=== PATIENT | male | born 1945 | race Caucasian/White ===

== ENCOUNTER 2016-10-22 10:26 | Day surgery (SDC) | payer MEDICARE, OTHER ==
--- NOTE | 2016-10-22 07:39 | HP ---
DATE OF SURGERY: 10/22/2016 HISTORY OF PRESENT ILLNESS: The patient is a 70 year-old with no bloody stools, history of polyps, the last colonoscopy was five years or so ago and no change in bowel habits. Family history negative for colon cancer. He is in need of follow up screening colonoscopy. PAST MEDICAL HISTORY: Hypercholesterolemia, diabetes, reflux. PAST SURGICAL HISTORY: Hernia surgery in the past. Laser surgery on prostate in the past. MEDICATIONS: Lansoprazole, Metformin, Simvastatin, aspirin. ALLERGIES: NKDA. FAMILY HISTORY: Negative in regards to this problem. SOCIAL HISTORY: No alcohol abuse. REVIEW OF SYSTEMS: Twelve systems reviewed per admission assessment. No chest pain or palpitations other systems negative or noncontributory as above and per preadmission questionnaire. PHYSICAL EXAMINATION: GENERAL: No acute distress. HEENT: Sclerae nonicteric. NECK: No JVD. CHEST: Equal excursion, nonlabored breathing. CVS: Regular rate and rhythm. ABDOMEN: Soft, nontender. No peritoneal signs. EXTREMITIES: No edema. No cyansosis. NEURO: Alert, moving extremities symmetrically. No gross motor deficits noted. RECTAL: Deferred timed to endoscopy exam. IMPRESSION: History of polyps. The last colonoscopy five years or more ago, needs follow up screening colonoscopy. I feel he is a candidate. Risks and benefits explained in detail. He is shown the risk sheet and explained the procedure in detail but not limited to bleeding or infection, small risk of bowel injury or perforation possibly requiring open procedure, small risk of missed or nondiagnosis or incomplete exam possibly requiring barium enema, other studies or procedures, general risk of anesthesia or sedation, risk of bowel prep, risk of nausea, cramping postoperatively but not limited to. He understands and agrees to the planned procedure and will proceed with follow up screening colonoscopy as an outpatient.
[~2016-10-22 10:26] MED LIST: DEMEROL 50 MG IV ONE; MORPHINE SULFATE 10 MG/ML IV ONE; Sodium Chloride 0.9% 1000 ML 1,000 ML IV SCH; Sodium Chloride 0.9% 1000 ML 1,000 ML ONE; VERSED 5 MG/5 ML IV ONE; Zofran 4 MG/2 ML VIAL IV ONE
[2016-10-22 16:31] VITALS: BP 129/75; PULSE 80; O2SAT 97
--- NOTE | 2016-10-23 08:09 | OP ---
SURGERY DATE/TIME: 10/22/2016 1338 PREOPERATIVE DIAGNOSIS: History of polyp, need follow up screening colonoscopy. POSTOPERATIVE DIAGNOSES: 1) Somewhat poor right colon prep limiting exam. 2) Diverticulosis. 3) Small internal hemorrhoid. 4) Small polyps ascending colon x2. 5) Small polyp transverse colon. 6) Small raised lesion versus hyperplastic lesion in the cecum and retrosigmoid area. PROCEDURES: 1) Colonoscopy to the cecum with hot snare polypectomy of the ascending colon polyp. 2) Hot biopsy removal of second separate site ascending colon polyp. 3) Hot biopsy removal of transverse colon polyp in piecemeal fashion. 4) Hot biopsy raised cecal lesion and rectosigmoid lesion versus hyperplastic lesions. SURGEON: Dr. David Vences. ANESTHESIA: IV sedation IV Demerol and Versed. IV Zofran. IV morphine. ESTIMATED BLOOD LOSS: Minimal. INDICATIONS: As noted above. Risks and benefits explained in detail but not limited to and consent obtained. DESCRIPTION OF PROCEDURE AND FINDINGS: The patient is taken to the endoscopy room on continuous pulse oximetry and blood pressure monitoring. After official time out and no disagreement with planned procedure, incrementally sedated with IV Demerol and Versed initially and then IV morphine and Versed. He had been given IV Zofran. Digital rectal exam did not reveal any rectal masses. He did have some small internal hemorrhoids. Video colonoscope inserted and passed up through the somewhat tortuous sigmoid, descending, transverse and ascending colon. With external pressure it was able to be passed through the cecum, appendiceal orifice and valve well visualized. Prep overall was somewhat poor particularly on the right colon with liquidy semisolid stool, a little bit better in the left colon. On withdrawal of the scope there was a small vague raised area in the cecum whether it was a simple hyperplasia of the mucosa or not does merit the hot biopsy forceps with brief bursts of cautery. Good hemostasis noted. Otherwise scope pulled back. There was a small polyp that was able to be removed with a snare hot snare polypectomy with brief bursts of cautery about 3 to 4 mm in size. Another 2 mm small polyp was removed with hot biopsy forceps with brief bursts of cautery in the second site in the descending colon. The scope was then pulled back to the transverse colon. There was another polyp on a fold that was only about 3.5 mm in size but required removal in piecemeal fashion although slightly sessile. It was removed in toto with path pending. The scope was then carefully pulled back, had some diverticulosis. He had small raised lesion versus hyperplastic lesion in the rectosigmoid removed with hot biopsy forceps. Otherwise had some small internal hemorrhoids. There were no signs of any large polyps, masses or obstructing lesions. Again his prep did limit the exam somewhat. Will await the biopsy results to decide whether to have follow up colonoscopy in two or three years given the piecemeal removal of the polyp in the transverse colon. The patient tolerated the procedure well. Findings discussed with the family in the waiting area.
== END 2016-10-22 15:50 | disposition home or self-care (01) ==
LOC: SDC 10:26
PROVIDERS: ATTEND Surgery
PROC: 0DBK8ZX Excision of Ascending Colon, Via Natural or Artificial Opening Endoscopic, Diagnostic (ICD-10-PCS; principal; 2016-10-22)
PROC: 0DBK8ZX Excision of Ascending Colon, Via Natural or Artificial Opening Endoscopic, Diagnostic (ICD-10-PCS; 2016-10-22)
PROC: 0DBN8ZX Excision of Sigmoid Colon, Via Natural or Artificial Opening Endoscopic, Diagnostic (ICD-10-PCS; 2016-10-22)
PROC: 0DBP8ZX Excision of Rectum, Via Natural or Artificial Opening Endoscopic, Diagnostic (ICD-10-PCS; 2016-10-22)
PROC: 0DBL8ZX Excision of Transverse Colon, Via Natural or Artificial Opening Endoscopic, Diagnostic (ICD-10-PCS; 2016-10-22)
DX: K57.90 Diverticulosis of intestine, part unspecified, without perforation or abscess without bleeding (principal); Z12.11 Encounter for screening for malignant neoplasm of colon; Z86.010 Personal history of colon polyps; K64.8 Other hemorrhoids; D12.2 Benign neoplasm of ascending colon; D12.3 Benign neoplasm of transverse colon; K63.9 Disease of intestine, unspecified; K62.9 Disease of anus and rectum, unspecified; E11.9 Type 2 diabetes mellitus without complications; Z79.4 Long term (current) use of insulin; K21.9 Gastro-esophageal reflux disease without esophagitis; E78.00 Pure hypercholesterolemia, unspecified; Z79.899 Other long term (current) drug therapy
CPT/HCPCS: 36415; J2175; J2250; J2270; J2405

== ENCOUNTER 2019-12-21 08:52 | Day surgery (SDC) | payer MEDICARE ==
--- NOTE | 2019-12-21 08:26 | HP ---
DATE OF SURGERY: 12/21/2019 HISTORY OF PRESENT ILLNESS: The patient is a 74 year old with history of polyps, no bloody stools, no change in bowel movements and no pain. Family history negative for colon cancer. He has history of polyps and is in need of follow up screening colonoscopy. PAST MEDICAL HISTORY: Heart disease, defibrillator in the past. Hypertension, hyperlipidemia, reflux. PAST SURGICAL HISTORY: Open heart surgery in the past. Vasectomy in the past. Defibrillator in the past. Prostate surgery in the past. MEDICATIONS: Multivitamins, amlodipine, aspirin, atorvastatin, furosemide, Klor-Con, omeprazole, Carvedilol, Entresto, ferrous sulfate, metformin. ALLERGIES: NKDA. FAMILY HISTORY: Diabetes, heart disease. SOCIAL HISTORY: No smoking or alcohol abuse. REVIEW OF SYSTEMS: Fourteen systems reviewed. No chest pain or palpitations. Other systems negative or noncontributory as above and per preadmission questionnaire. PHYSICAL EXAMINATION: GENERAL: No acute distress. HEENT: Sclerae nonicteric. NECK: No JVD. CHEST: Equal excursion, nonlabored breathing. CVS: Regular rate and rhythm. ABDOMEN: Soft. No peritoneal signs. EXTREMITIES: No significant edema. NEURO: Alert, oriented, moving extremities symmetrically. No gross motor deficits noted. RECTAL: Deferred timed to endoscopy exam. PSYCH: Appropriate mood and affect. IMPRESSION: History of multiple tubular adenoma in the colon in the past. I feel he would benefit from follow up colonoscopy. His last endoscopy was a few years ago and I feel he is a candidate. He was shown the risk sheet and explained the procedure in detail including but not limited to bleeding or infection, risk of bowel injury or perforation possibly requiring open procedure, risk of missed or nondiagnosis or incomplete exam possibly requiring barium enema, other studies or procedures, general risk of anesthesia or sedation but not limited to and consent obtained, will proceed with outpatient colonoscopy.
[~2019-12-21 08:52] MED LIST changes: -DEMEROL 50 MG IV ONE; +DIPRIVAN 200 MG/20 ML IV ONE; +Lactated Ringers 1,000 ML IV SCH; -MORPHINE SULFATE 10 MG/ML IV ONE; -Sodium Chloride 0.9% 1000 ML 1,000 ML IV SCH; -Sodium Chloride 0.9% 1000 ML 1,000 ML ONE; -VERSED 5 MG/5 ML IV ONE; -Zofran 4 MG/2 ML VIAL IV ONE
[2019-12-21 12:04] VITALS: PULSE 68
[2019-12-21 12:24] VITALS: BP 123/65; O2SAT 99
[2019-12-21] MEDS ORDERED: Lactated Ringers 1,000 ML IV ONE (12:39)
--- NOTE | 2019-12-21 13:01 | OP ---
SURGERY DATE/TIME: 12/21/2019 1059 PREOPERATIVE DIAGNOSIS: History of polyps. POSTOPERATIVE DIAGNOSES: Small polyps ascending colon, transverse colon. PROCEDURES: 1) Colonoscopy to cecum. 2) Hot biopsy piecemeal removal of ascending colon polyp. 3) Hot biopsy removal with piecemeal of transverse colon polyp. 4) ASA Class II. SURGEON: Dr. David Vences. ANESTHESIA: MAC. ESTIMATED BLOOD LOSS: Minimal. INDICATIONS: As noted above. Risks and benefits explained in detail but not limited to and consent obtained. DESCRIPTION OF PROCEDURE AND FINDINGS: The patient is taken to the operating room. After official time out and no disagreement with planned procedure, MAC anesthesia introduced. Digital rectal exam did not reveal any rectal masses. He did have some small internal hemorrhoids. Video colonoscope inserted and passed up through the slightly tortuous sigmoid, descending, transverse and ascending colon. With external pressure the scope was able to be passed to the cecum. Appendiceal orifice and valve well visualized and photo documented. Prep was fair. ASA Class II. Withdrawal time was approximately ten minutes. Scope slowly and carefully withdrawn. There were no signs of any large polyps, masses or obstructing lesions. He did have a small, 3 mm polyp in the ascending colon removed with two pieces with hot biopsy forceps and brief bursts of cautery. Good hemostasis. It was removed in piecemeal fashion and appeared to be completely removed. Scope carefully withdrawn. He had one other small polyp in the transverse colon removed with hot biopsy forceps with brief bursts of cautery in piecemeal fashion. Good hemostasis noted. Otherwise he had a few small diverticula in the left colon, some minimal internal hemorrhoids. There were no signs of any large polyps, masses or obstructing lesions. He tolerated the procedure well. There were no immediate complications. There was no family here to discuss the findings with. I will see him back in the office next week. If the path has benign adenoma likely will recommend follow up colonoscopy.
== END 2019-12-21 12:20 | disposition home or self-care (01) ==
LOC: SDC 08:52
PROVIDERS: ATTEND Surgery
DX: Z12.11 Encounter for screening for malignant neoplasm of colon (principal); Z86.010 Personal history of colon polyps; K64.8 Other hemorrhoids; D12.2 Benign neoplasm of ascending colon; D12.3 Benign neoplasm of transverse colon; K57.30 Diverticulosis of large intestine without perforation or abscess without bleeding; E11.9 Type 2 diabetes mellitus without complications; I10 Essential (primary) hypertension; E78.5 Hyperlipidemia, unspecified; Z79.899 Other long term (current) drug therapy
CPT/HCPCS: 82962; 88305; 99100; J2704

== ENCOUNTER 2023-03-04 09:29 | Day surgery (SDC) | payer MEDICARE ==
--- NOTE | 2023-03-04 08:16 | HP ---
DATE OF SURGERY: 03/04/2023 HISTORY OF PRESENT ILLNESS: The patient is a 77-year-old was sent a reminder for a follow up colonoscopy. I do believe he said he had some polyps in the past. He denies any bloody stools, no change in bowel movement and no new pain. Family history negative for colon cancer. PAST MEDICAL HISTORY: Hypertension, heart disease, arthritis, heartburn, diabetes mellitus type II, prostate cancer and hyperlipidemia. PAST SURGICAL HISTORY: Pacemaker/defibrillator in the past. Coronary artery bypass graft. Colonoscopy. Hernia repair. MEDICATIONS: Metformin, ferrous sulfate, Entresto, carvedilol, omeprazole, Klor-Con, magnesium, furosemide, atorvastatin, aspirin, amlodipine. ALLERGIES: NKDA. FAMILY HISTORY: Negative for colon cancer. SOCIAL HISTORY: No smoking or alcohol abuse. REVIEW OF SYSTEMS: Twelve systems reviewed. No chest pain or palpitations. Other systems negative or noncontributory as above and per preadmission questionnaire. PHYSICAL EXAMINATION: Height 5'6". BMI 26.95. GENERAL: No acute distress. HEENT: Sclerae nonicteric. EOMI. Oral mucous membranes moist. NECK: No JVD. CHEST: Equal excursion, nonlabored breathing. CVS: Regular rate and rhythm. ABDOMEN: Soft. No peritoneal signs. EXTREMITIES: No significant edema. NEURO: Alert, oriented, moving extremities symmetrically. RECTAL: Deferred timed to endoscopy exam. PSYCH: Appropriate mood and affect. SKIN: Dry. IMPRESSION: Need for follow up colonoscopy. I feel he is a candidate. He was shown the risk sheet, explained the procedure in detail including but not limited to risk of bleeding or infection, risk of bowel injury or perforation, risk of missed or nondiagnosis or incomplete exam possibly requiring barium enema, other studies, procedures or referral, risk of anesthesia or sedation, risk of bowel prep but not limited to. Hold blood thinners preoperatively. Schedule outpatient under MAC anesthesia colonoscopy. Otherwise continue medications for hyperlipidemia, heart disease, hypertension, diabetes, arthritis and heartburn.
[2023-03-04] MEDS ORDERED: Lactated Ringers 1,000 ML IV ONE (09:43)
[2023-03-04] MEDS ORDERED: Lactated Ringers 1,000 ML IV SCH (10:00)
[2023-03-04 10:02] VITALS: RESP 18
[2023-03-04] MEDS ORDERED: DIPRIVAN 200 MG/20 ML IV ONE (12:03)
[2023-03-04 12:45] VITALS: TEMP 97.6
[2023-03-04 12:58] VITALS: BP 121/68; PULSE 53; O2SAT 92
--- NOTE | 2023-03-04 15:17 | OP ---
SURGERY DATE/TIME: 03/04/2023 1204 PREOPERATIVE DIAGNOSIS: History of polyps, needs follow up screening colonoscopy. POSTOPERATIVE DIAGNOSES: 1) ASA Class III. 2) Withdrawal time approximately nine minutes. 3) Colon polyp ascending colon x2. PROCEDURES: Colonoscopy to cecum with hot biopsy polypectomy ascending colon polyps x2. SURGEON: Dr. David Vences. ANESTHESIA: General. ESTIMATED BLOOD LOSS: Minimal. INDICATIONS: As noted above. Risks and benefits explained in detail but not limited to and consent obtained. DESCRIPTION OF PROCEDURE AND FINDINGS: The patient is taken to the endoscopy room. General anesthesia induced. After official time out and no disagreement with planned procedure, digital rectal exam did not reveal any rectal masses. Video colonoscope inserted and passed up through the slightly tortuous sigmoid, descending, transverse and ascending colon around to the cecum. Appendiceal orifice and valve well visualized and photo documented. Prep was fair. The scope was carefully withdrawn over the next nine minutes or so. No signs of any large polyps, masses or obstructing lesions. There were two small polyps in the ascending colon that were removed with hot biopsy polypectomy brief bursts of cautery and hot biopsy forceps. Good hemostasis was noted. Otherwise, no signs of any other large polyps, masses or obstructing lesion. The scope is withdrawn. Findings discussed with the family out in the waiting area.
== END 2023-03-04 13:13 | disposition home or self-care (01) ==
LOC: SDC 09:29
PROVIDERS: ATTEND Surgery
DX: Z12.11 Encounter for screening for malignant neoplasm of colon (principal); Z09 Encounter for follow-up examination after completed treatment for conditions other than malignant neoplasm; Z86.010 Personal history of colon polyps; D12.2 Benign neoplasm of ascending colon; E11.9 Type 2 diabetes mellitus without complications; Z85.46 Personal history of malignant neoplasm of prostate
CPT/HCPCS: 82947; 93005; 99100; J2704